=== PATIENT | female | born 1995 | race Caucasian/White ===

== ENCOUNTER 2022-07-03 12:58 | Emergency (ER) | payer OTHER ==
--- NOTE | 2022-07-03 13:22 | ED ---
Lower Extremity Injury HPI - General Chief Complaint: Extremity Injury, Lower Stated Complaint: rt ankle injury Time Seen by Provider: 07/03/22 13:00 Source: patient, RN notes reviewed Mode of arrival: wheelchair Limitations: no limitations - History of Present Illness Initial Comments: This is a 27-year-old female who presents to the emergency department for right ankle pain. States that she was just walking, when she suddenly heard a crunch in the ankle. She had not fallen or otherwise injured it. She has broken that ankle in the past. Reports numbness and tingling around the lateral aspect of the right foot and ankle. She has been walking on it, however she states that she is limping and it is difficult. Denies any fevers, chills, sore throat, cough, dyspnea, chest pain, palpitations, abdominal pain, nausea, vomiting, diarrhea, back pain, or headaches. MD Complaint: ankle injury, foot injury Injury: Ankle: Right, Foot: Right - Related Data Allergies Allergy/AdvReac Type Severity Reaction Status Date / Time keflex Allergy Dyspnea Uncoded 07/03/22 13:07 peniclillin Allergy Rash/Hives Uncoded 07/03/22 13:07 Review of Systems ROS Statement: Those systems with pertinent positive or pertinent negative responses have been documented in the HPI. ROS Other: All systems not noted in ROS Statement are negative. Past Medical History Past Medical History: No Reported History History of Any Multi-Drug Resistant Organisms: None Reported Past Surgical History: No Surgical Hx Reported Past Psychological History: No Psychological Hx Reported Smoking Status: Current every day smoker Past Alcohol Use History: None Reported Past Drug Use History: None Reported General Exam Limitations: no limitations General appearance: alert, in no apparent distress Head exam: Present: atraumatic, normocephalic, normal inspection Respiratory exam: Present: normal lung sounds bilaterally. Absent: respiratory distress, wheezes, rales, rhonchi, stridor Cardiovascular Exam: Present: regular rate, normal rhythm, normal heart sounds. Absent: systolic murmur, diastolic murmur, rubs, gallop, clicks Extremities exam: Present: other (Swelling and tenderness to the right lateral malleolus. Full active and passive range of motion.) Neurological exam: Present: alert, oriented X3, CN II-XII intact Psychiatric exam: Present: normal affect, normal mood Skin exam: Present: warm, dry, intact, normal color. Absent: rash Course Vital Signs 07/03/22 07/03/22 07/03/22 13:03 13:23 15:23 Temperature 97.8 F 98 F 97.8 F Pulse Rate 73 78 74 Respiratory 20 16 16 Rate Blood Pressure 150/90 126/82 132/74 O2 Sat by Pulse 99 100 100 Oximetry Medical Decision Making - Medical Decision Making This is a 27-year-old female who presents to the emergency department for right foot and ankle pain. X-rays of the right foot and ankle were obtained. This revealed an ossific density at the level of the medial malleolus of indeterminate acuity. Patient has no point tenderness along the medial malleolus or dorsum of the foot. All of her pain is situated along the lateral malleolus. This was discussed with the patient. I offered crutches and a splint in the event there is an acute fracture, however the patient declined. Ankle stirrup splint was provided instead for stabilization. Advised ibuprofen and Tylenol as needed for pain relief and applying ice for 10-15 minutes every 2-3 hours. Discussed that if symptoms persist at the 7-10 day marked, she will likely need repeat x-rays in the event she has any fractures that are not currently identifiable. Follow-up with Dr. Ramirez, orthopedics, was provided. Instructed her to contact their office for a follow-up appointment. Return precautions reviewed in depth, the patient is instructed to return to the emergency department with any new, worsening, or concerning symptoms. Patient verbalized understanding. This case was discussed in detail with the attending ED physician. Presentation, findings, and treatment plan discussed in detail as well. - Radiology Data Radiology results: report reviewed, image reviewed Disposition Clinical Impression: Right ankle sprain Disposition: HOME SELF-CARE Instructions (If sedation given, give patient instructions): Ankle Sprain (ED), Ankle Stirrup Splint (ED) Additional Instructions: Return to the emergency department with any new, worsening, or concerning symptoms. Apply ice for 10-15 minutes every 2-3 hours and alternate with ibuprofen and Tylenol for pain relief. If symptoms do not improve in 7-10 days, you may need repeat x-rays to evaluate for any possible fractures that are not currently identifiable. Contact Dr. Ramirez, orthopedics, if symptoms do not improve for further evaluation. Follow up with your primary care provider in 1- 2 days. Is patient prescribed a controlled substance at d/c from ED?: No Referrals: None,Stated [Primary Care Provider] - 1-2 days Marbella Ramirez DO [Doctor of Osteopathic Medicine] - 1-2 days
[2022-07-03 13:25] VITALS: RESP 16
--- NOTE | 2022-07-03 14:31 | XR ---
Right foot and right ankle HISTORY: Trauma and pain Reviews of the right foot, 3 views of the right ankle submitted Soft tissue swelling is present. Ossific density at the level of the medial malleolus is of indetermi lance acuity. Small ossific density dorsal to the tarsometatarsal joint region is indeterminate. Ossif ic density distal to the lateral malleolus appears well-corticated and is not felt likely to be acute . Alignment is maintained, bone mineralization and joint spaces are normal. IMPRESSION: Correlate for point tenderness along the medial malleolus and dorsum of the foot. No acut e dislocation.
[2022-07-03 15:23] VITALS: BP 132/74; PULSE 74; TEMP 97.8
== END 2022-07-03 15:25 | disposition home or self-care (01) ==
LOC: EC 12:58
DX: S93.401A Sprain of unspecified ligament of right ankle, initial encounter (principal); F17.200 Nicotine dependence, unspecified, uncomplicated; Z88.0 Allergy status to penicillin; Z88.1 Allergy status to other antibiotic agents; X50.0XXA Overexertion from strenuous movement or load, initial encounter; Y93.01 Activity, walking, marching and hiking
CPT/HCPCS: 99283

== ENCOUNTER 2022-08-09 16:19 | Emergency (ER) | payer SELFPAY ==
[2022-08-09] MEDS ORDERED: predniSONE 50 MG TAB PO STA (19:11)
--- NOTE | 2022-08-09 19:13 | ED ---
Lower Extremity Injury HPI - General Chief Complaint: Extremity Injury, Lower Stated Complaint: L. Hip Swelling and Pain Time Seen by Provider: 08/09/22 18:59 Source: patient, RN notes reviewed Mode of arrival: ambulatory Limitations: no limitations - History of Present Illness Initial Comments: This is a pleasant 27-year-old female presents to emergency department with pain and clicking to her left hip which is going on for about 2 weeks. Any injury. Patient was seen at [facility] previously and had x-rays done which were negative for any acute pathology. Patient has been using ibuprofen with no improvement. Patient states it seems to be worse when she ambulates. He does radiate into the left lower back as well as into the left thigh at times. Patient states when it clicks and feels like it's going to give out on her. She denies any problems with bowel movements or urination. No fever or chills. No skin rashes or lesions. Pain is exacerbated by movement, assessment about walking, alleviated by rest. No headache, no fever or chills, no changes in vision or hearing, no sore throat or difficulty with speech, no neck pain, no chest pain or shortness of breath, no abdominal pain, no nausea or vomiting, no changes in urination or bowel movements, no numbness or tingling,, no skin rashes or lesions. Past medical, surgical, social, and family history reviewed. MD Complaint: hip injury - Related Data Previous Rx's Medication Instructions Recorded Acetaminophen Tab [Tylenol Tab] 500 mg PO Q6H PRN #24 tablet 08/09/22 methylPREDNISolone Dose Pack 4 mg PO DIRECTED #21 tab 08/09/22 [Medrol Dose Pack] Allergies Allergy/AdvReac Type Severity Reaction Status Date / Time keflex Allergy Dyspnea Uncoded 08/09/22 18:55 peniclillin Allergy Rash/Hives Uncoded 08/09/22 18:55 Review of Systems ROS Statement: Those systems with pertinent positive or pertinent negative responses have been documented in the HPI. ROS Other: All systems not noted in ROS Statement are negative. Past Medical History Past Medical History: No Reported History History of Any Multi-Drug Resistant Organisms: None Reported Past Surgical History: No Surgical Hx Reported Past Psychological History: No Psychological Hx Reported Smoking Status: Former smoker Past Alcohol Use History: None Reported Past Drug Use History: None Reported General Exam - General Exam Comments Initial Comments: Patient does not appear to be ill or toxic. Vital signs are reviewed. Limitations: no limitations General appearance: alert, in no apparent distress Head exam: Present: atraumatic, normocephalic, normal inspection Eye exam: Present: normal appearance, PERRL, EOMI. Absent: scleral icterus, conjunctival injection, periorbital swelling ENT exam: Present: normal exam, mucous membranes moist Neck exam: Present: normal inspection, full ROM. Absent: tenderness, meningismus, lymphadenopathy Respiratory exam: Present: normal lung sounds bilaterally. Absent: respiratory distress, wheezes, rales, rhonchi, stridor Cardiovascular Exam: Present: regular rate, normal rhythm, normal heart sounds. Absent: systolic murmur, diastolic murmur, rubs, gallop, clicks GI/Abdominal exam: Present: soft, normal bowel sounds. Absent: distended, tenderness, guarding, rebound, rigid Extremities exam: Present: normal inspection, full ROM, tenderness (Patient has tenderness to palpation to the lateral aspect of the left hip overlying the area of the greater trochanter. No edema. No rash. No break in skin integrity. No erythema), normal capillary refill. Absent: pedal edema, joint swelling, calf tenderness Back exam: Present: normal inspection, full ROM, other (Straight leg raise is negative bilaterally.). Absent: tenderness, CVA tenderness (R), CVA tenderness (L), muscle spasm, paraspinal tenderness, vertebral tenderness, rash noted Neurological exam: Present: alert, oriented X3, CN II-XII intact, normal gait. Absent: motor sensory deficit Psychiatric exam: Present: normal affect, normal mood Skin exam: Present: warm, dry, intact, normal color. Absent: rash, cyanosis, diaphoretic, erythema, urticaria, vesicles, petechiae, pallor, mottled, abrasion Course Vital Signs 08/09/22 18:55 Temperature 98 F Pulse Rate 88 Respiratory 18 Rate Blood Pressure 151/94 O2 Sat by Pulse 96 Oximetry Medical Decision Making - Medical Decision Making -There are no red flags for concerning back pathology. Specifically: -No history of cancer, this is not a mass effect, MRI not indicated. -No anticoagulation, this is not a bleed. -No fevers, no IVDU, this is not an infectious process. -No trauma, no bony pain, x-rays are not indicated. -With a normal neuro exam, and no urinary or bowel retention or incontinence, there is no clinical sign of motor defect or cauda equina - MRI is not indicated at this point. -No pulsating abdominal mass or risk factors for AAA. -Pain is relieved with rest, which is also less concerning. -I do not believe that x-rays or emergent MRI is indicated at this time--NOTE that the patient had plain film x-rays done at [place]. -We will treat symptomatically and discharge home with follow up instructions. -Stretching/strengthening exercise given to patient and they will be referred to physical therapy -Patient is instructed to use [id number] analgesics as directed on packaging for pain. We'll try the patient on a Medrol Dosepak as well as work limitations. Orthopedic follow-up as advised. Patient was told to return to the ER for any signs or symptoms worsen. Told to return immediately if any other problems arise. All questions answered. Treatment plan discussed. Patient in agreement Every effort has been made to ensure accuracy of this dictation. However, due to the limitations of electronic medical records and dictation devices, errors in charting still occur. Supervising physician is Dr. Cormier Disposition Clinical Impression: Left hip impingement syndrome Disposition: HOME SELF-CARE Condition: Good Instructions (If sedation given, give patient instructions): Hip Impingement (ED) Additional Instructions: Follow-up with your regular physician as directed. Return to the ER immediately if any symptoms worsen, new symptoms arise, or any other problems develop. Call tomorrow morning to set up a follow-up appointment with the orthopedic physician. Sitting work only for the next 7 days. Prescriptions: methylPREDNISolone Dose Pack [Medrol Dose Pack] 4 mg PO DIRECTED #21 tab Acetaminophen Tab [Tylenol Tab] 500 mg PO Q6H PRN #24 tablet PRN Reason: Pain Is patient prescribed a controlled substance at d/c from ED?: No Referrals: Marbella Ramirez DO [Doctor of Osteopathic Medicine] - 08/13/22 Time of Disposition: 19:12
[2022-08-09 19:32] VITALS: BP 145/88; PULSE 72; RESP 13; TEMP 97.4
== END 2022-08-09 19:32 | disposition home or self-care (01) ==
LOC: EC 16:19
DX: M25.852 Other specified joint disorders, left hip (principal); Z87.891 Personal history of nicotine dependence; Z88.0 Allergy status to penicillin; Z88.1 Allergy status to other antibiotic agents
CPT/HCPCS: 99283; J7512

== ENCOUNTER 2022-08-20 17:55 | Emergency (ER) | payer SELFPAY ==
[2022-08-20 18:09] VITALS: RESP 20
--- NOTE | 2022-08-20 19:15 | ED ---
ENT HPI - General Chief complaint: ENT Stated complaint: Swollen Tonsils Time Seen by Provider: 08/20/22 18:43 Source: patient, RN notes reviewed Mode of arrival: ambulatory Limitations: no limitations - History of Present Illness Initial comments: Patient is a 27-year-old male presenting to the emergency room with complaints of sore throat ongoing for approximately 4 days along with nasal congestion that began approximately 2 days ago she is also reporting some left airplane however she is unsure when that began over the course of the last few days. She is also reporting that her right eye had crusted close this morning. She states that she has had felt hot and cold off and on however she has not been checking her temperature. She reports occasional difficulty with deep inspiration but overall denies any significant shortness of breath. She denies any chest pain, abdominal pain, nausea, vomiting, diarrhea, headache is not related to her as stated above symptoms, dizziness, known exposure to COVID or influenza. She has not taken any medication to treat her symptoms. She denies any other complaints or concerns. She has no significant past medical history on any medications on a regular basis. - Related Data Previous Rx's Medication Instructions Recorded Acetaminophen Tab [Tylenol Tab] 500 mg PO Q6H PRN #24 tablet 08/09/22 methylPREDNISolone Dose Pack 4 mg PO DIRECTED #21 tab 08/09/22 [Medrol Dose Pack] Azithromycin [Zithromax Z Pack] 1 tab PO DIRECTED #6 tab 08/20/22 Erythromycin Ophth Oint [Romycin 1 applic RIGHT EYE QID #3.5 gm 08/20/22 Ophth Oint] Allergies Allergy/AdvReac Type Severity Reaction Status Date / Time keflex Allergy Dyspnea Uncoded 08/09/22 18:55 peniclillin Allergy Rash/Hives Uncoded 08/09/22 18:55 Review of Systems ROS Statement: Those systems with pertinent positive or pertinent negative responses have been documented in the HPI. ROS Other: All systems not noted in ROS Statement are negative. Past Medical History Past Medical History: No Reported History History of Any Multi-Drug Resistant Organisms: None Reported Past Surgical History: No Surgical Hx Reported Past Psychological History: No Psychological Hx Reported Smoking Status: Former smoker Past Alcohol Use History: None Reported Past Drug Use History: None Reported General Exam General appearance: alert, in no apparent distress Head exam: Present: atraumatic, normocephalic, normal inspection Eye exam: Present: PERRL, EOMI. Absent: scleral icterus Expanded Eyelids: Swelling: Right (mild) Sclera/Conjunctival: Normal Inspection: Left, Injection: Right, Exudate: Right (trace) Expanded TM/Canal exam: Erythema: Left TM, Bulging: Left TM, Effusion: Left TM, Canal Tenderness: Left TM Mouth exam: Present: normal external inspection Teeth exam: Present: normal inspection Throat exam: tonsillomegaly. negative: tonsillar exudate Neck exam: Present: normal inspection, full ROM, lymphadenopathy (shotty) Respiratory exam: Present: normal lung sounds bilaterally. Absent: respiratory distress, wheezes, rales, rhonchi, stridor Cardiovascular Exam: Present: regular rate, normal rhythm, normal heart sounds. Absent: systolic murmur, diastolic murmur, rubs, gallop, clicks GI/Abdominal exam: Present: soft, normal bowel sounds. Absent: distended, tenderness, guarding, rebound, rigid Rectal exam: Present: deferred Extremities exam: Present: normal inspection. Absent: pedal edema, joint swelling Back exam: Present: normal inspection, full ROM Neurological exam: Present: alert, oriented X3, CN II-XII intact Psychiatric exam: Present: normal affect, normal mood Skin exam: Present: warm, dry, intact, normal color. Absent: rash Course Vital Signs 08/20/22 18:06 Temperature 98.3 F Pulse Rate 100 Respiratory 20 Rate Blood Pressure 137/99 O2 Sat by Pulse 97 Oximetry Medical Decision Making - Medical Decision Making 27-year-old female presenting with multiple complaints including ear pain, sore throat, nasal congestion and eyes redness with swelling and exudate. Exam reveals otitis media the left ear and conjunctivitis of the right eye. No evidence of his tonsillar exudate. Will defer strep exam. Will check cephid swab for RSV, Covid and influenza. Will defer further diagnostic imaging and laboratory studies. No indication for IV fluids, analgesics, steroids or supplemental oxygen. Will plan for antibiotic treatment for otitis media along with acute conjunctivitis treatment for nasal congestion and sore throat. Cephid swab negative for RSV, Covid and influenza. Will proceed with antibiotic treatment for otitis media and acute conjunctivitis with Zithromax and erythromycin respectively due to to penicillin and Keflex ALLERGY. Encouraged good hydration and symptomatic treatment with Tylenol or ibuprofen as needed. W ill discharge home in stable condition. Case discussed with Dr. Modi. - Lab Data Lab Results 08/20/22 Range/Units 18:47 Influenza Type A (PCR) Not Detected (Not Detectd) Influenza Type B (PCR) Not Detected (Not Detectd) RSV (PCR) Not Detected (Not Detectd) SARS-CoV-2 (PCR) Not Detected (Not Detectd) Disposition Clinical Impression: Otitis media of left ear, Conjunctivitis of right eye, Acute rhinosinusitis Disposition: HOME SELF-CARE Condition: Stable Instructions (If sedation given, give patient instructions): Ear Infection (ED), Conjunctivitis (ED) Additional Instructions: Please complete course of antibiotic as prescribed orally. Please utilize antibiotic for conjunctivitis to IM until symptoms resolved. Please allow 24 hours fever free without fever reducing agents and resolution of pinkeye prior to returning to work. Please follow-up with your primary care provider. Perennial fluid intake encouraged with the avoidance of caffeinated products. Please return to the Emergency Department if symptoms worsen or any other concerns. Prescriptions: Erythromycin Ophth Oint [Romycin Ophth Oint] 1 applic RIGHT EYE QID #3.5 gm Azithromycin [Zithromax Z Pack] 1 tab PO DIRECTED #6 tab Is patient prescribed a controlled substance at d/c from ED?: No Referrals: None,Stated [Primary Care Provider] - 1-2 days Time of Disposition: 20:01
[2022-08-20 20:09] VITALS: BP 132/92; PULSE 92; TEMP 98
== END 2022-08-20 20:08 | disposition home or self-care (01) ==
LOC: EC 17:55
DX: H66.92 Otitis media, unspecified, left ear (principal); H10.9 Unspecified conjunctivitis; J01.90 Acute sinusitis, unspecified; Z20.822 Contact with and (suspected) exposure to COVID-19; Z87.891 Personal history of nicotine dependence; Z88.0 Allergy status to penicillin; Z88.1 Allergy status to other antibiotic agents
CPT/HCPCS: 87636; 99284

== ENCOUNTER → 2023-03-16 | Outpatient (CLI) | payer OTHER ==
[2023-03-16 13:32] LABS: ALT 17 U/L (8-44); AST 16 U/L (13-35); Albumin 4.3 d/dL (3.8-4.9); Albumin/Globulin Ratio 1.48 Ratio (1.60-3.17); Alkaline Phosphatase 66 U/L (41-126); BUN/Creat Ratio 18.88 Ratio (12.00-20.00); Blood Urea Nitrogen 15.1 mg/dL (9.0-27.0); Calcium 10.2 mg/dL (8.7-10.3); Chloride 103 mmol/L (96-109); Chol/HDL Ratio 3.01 Ratio; Globulin 2.9 d/dL (1.6-3.3); Glucose 95 mg/dL (70-110); LDL Cholesterol,Calculated 100.5 mg/dL (0.0-131.0); Potassium 4.4 mmol/L (3.5-5.5); Sodium 138 mmol/L (135-145); Total Bilirubin 0.3 mg/dL (0.3-1.2); Total Protein 7.2 d/dL (6.2-8.2); VLDL Calculation 16.34 mg/dL (5.00-40.00)
[2023-03-16 13:37] LABS: HCT 43.3 % (37.2-46.3); HGB 13.5 d/dL (12.0-15.0); MCH 24.4 pg (27.0-32.0); MCHC 31.2 d/dL (32.0-37.0); MCV 78.3 FL (80.0-97.0); Mean Platelet Volume 10.5 FL (9.5-12.2); NRBC Per 100 WBC 0 X 10*3/uL (0.00-0.01); Platelet Count 348 X 10*3/uL (140-440); RBC 5.53 X 10*6/uL (4.10-5.20); RDW 16.6 % (11.5-14.5); WBC 9.39 X 10*3/uL (4.50-10.00)
== END | disposition home or self-care (01) ==
LOC: LABWHC1 08:56
PROVIDERS: ATTEND Nurse Practitioner Family
DX: Z00.00 Encounter for general adult medical examination without abnormal findings (principal); Z13.220 Encounter for screening for lipoid disorders; Z13.1 Encounter for screening for diabetes mellitus; D64.9 Anemia, unspecified
CPT/HCPCS: 36415; 80053; 80061; 85027